=== PATIENT | female | born 1945 | race Caucasian/White ===

== ENCOUNTER → 2021-04-27 | Outpatient (CLI) | payer MEDICARE ==
--- NOTE | 2021-04-27 10:51 | CT ---
EXAMINATION TYPE: CT brain wo con DATE OF EXAM: 04/27/2021 COMPARISON: None HISTORY: Otalgia, Rt Ear CT DLP: 1090.4 mGycm Automated exposure control for dose reduction was used. FINDINGS: Nasal septal deviation. Calvarium intact. Mild generalized degenerative change with no acute hemorrha ge or mass effect. No midline shift. Areas of low attenuation involving the basal ganglia suggestive of remote lacunar infarct. Intracranial atherosclerotic changes. Orbits symmetric. Craniocervical junction maintained. Sella turcica has a normal appearance. IMPRESSION: MILD DEGENERATIVE CHANGE WITH NO ACUTE HEMORRHAGE OR MASS EFFECT.
== END | disposition home or self-care (01) ==
LOC: RADCTMAIN 09:40
PROVIDERS: ATTEND Family Medicine
DX: G31.9 Degenerative disease of nervous system, unspecified (principal)
CPT/HCPCS: 70450

== ENCOUNTER → 2021-05-11 | Outpatient (CLI) | payer MEDICARE ==
[2021-05-11 11:59] LABS: Basophils # (A) 0.1 k/uL (0-0.2); Basophils % (A) 1 %; Eosinophils # (A) 0.1 k/uL (0-0.7); Eosinophils % (A) 1 %; HGB 16.3 gm/dL (11.4-16.0); Lymphocytes # (A) 2.4 k/uL (1.0-4.8); Lymphocytes % (A) 31 %; MCH 31.7 pg (25.0-35.0); MCV 93.1 fL (80.0-100.0); Mean Platelet Volume 7.4; Monocytes # (A) 0.4 k/uL (0-1.0); Monocytes % (A) 5 %; Neutrophils # (A) 4.6 k/uL (1.3-7.7); Neutrophils % (A) 59 %; Platelet Count 300 k/uL (150-450); RBC 5.15 m/uL (3.80-5.40); WBC 7.7 k/uL (3.8-10.6)
[2021-05-11 13:22] LABS: Erythrocyte Sedimentation Rate 7 mm/hr (0-20)
== END | disposition home or self-care (01) ==
LOC: LABWHC1 11:39
PROVIDERS: ATTEND Optometrist
DX: H53.19 Other subjective visual disturbances (principal)
CPT/HCPCS: 36415; 85025; 85652; 86140

== ENCOUNTER → 2023-05-07 | Outpatient (CLI) | payer MEDICARE ==
--- NOTE | 2023-05-12 13:05 | BD ---
EXAMINATION TYPE: Axial Bone Density DATE OF EXAM: 05/07/2023 CLINICAL HISTORY: 78 years old Female. ICD-10 CODE: M40.4 M54.89 BACK PAIN WITHOUT , M54.9 BACK PAIN UNSPECIFIED Height: 57.7 in Weight: 129 lbs RISK FACTORS HISTORY OF: Family History of Osteoporosis: yes grandmother Active: limited Postmenopausal woman: age 53 Lost more than 2 inches in height since high school: yes 06/24" MEDICATIONS: Additional Medications: calcium, vit d, vit c, vit b,blood pressure meds, heart meds, shingles med, EXAM MEASUREMENTS: Bone mineral densitometry was performed using the [employer]. Bone mineral density as measured about the Lumbar spine is: ----- L1-L4(G/cm2): 1.075 T Score Values are as follows: ----- L1: -1.7 ----- L2: -2.0 ----- L3: -0.3 ----- L4: 0.1 ----- L1-L4: -0.9 Z Score Values are as follows: ----- L1: 0.3 ----- L2: 0.0 ----- L3: 1.7 ----- L4: 2.2 ----- L1-L4: 1.2 Bone mineral density has: Increased 1.4% since study of: 08/01/2008 Bone mineral density about the R hip (g/cm2): 0.804 Bone mineral density about the L hip (g/cm2): 0.872 T Score values are as follows: -----R Neck: -2.0 -----L Neck: -1.6 -----R Total: -1.6 -----L Total: -1.1 Z Score values are as follows: -----R Neck: 0.3 -----L Neck: 0.7 -----R Total: 0.5 -----L Total: 1.1 Bone mineral density has: Decreased -10.8% since study of: 08/01/2008 FRAX%s: The graph provided illustrates a 15.9% chance for a major osteoporotic fx and a 4.7% chance f or the hips probability for fx in 10 years time. IMPRESSION: Osteopenia (T Score between -2.5 and -1). There is slightly increased risk of fracture and the patient may be considered for treatment. Re-Screen 2-5 years. NOTE: T-SCORE=SD OF THE YOUNG ADULT MEAN.
== END | disposition home or self-care (01) ==
LOC: RADBDWWP 13:05
PROVIDERS: ATTEND Family Medicine
DX: M85.89 Other specified disorders of bone density and structure, multiple sites (principal); M40.04 Postural kyphosis, thoracic region; M54.89 Other dorsalgia; Z78.0 Asymptomatic menopausal state
CPT/HCPCS: 77080

== ENCOUNTER → 2023-06-19 | Outpatient (CLI) | payer MEDICARE ==
--- NOTE | 2023-06-19 12:47 | CT ---
EXAMINATION TYPE: CT abdomen pelvis wo con CT DLP: 743 mGycm, Automated exposure control for dose reduction was used. DATE OF EXAM: 06/19/2023 11:00 AM COMPARISON: 02/18/2011. CLINICAL INDICATION:Female, 78 years old with history of R31.0 GROSS HEMATURIA; gross hematuria, bila teral flank pain TECHNIQUE: Axial CT abdomen pelvis wo con;Sagittal and coronal reformats were created on a separate workstation. Contrast used: mL of , (none if empty) Oral contrast used: without Oral Contrast (none if empty) FINDINGS: LOWER CHEST: Unremarkable ABDOMEN LIVER: Unremarkable GALLBLADDER AND BILE DUCTS: Large gallstone in the gallbladder neck. PANCREAS: Unremarkable. SPLEEN: Unremarkable. ADRENAL GLANDS: Unremarkable. KIDNEYS AND URETERS: No evidence of hydronephrosis or renal calculus. The ureters are unremarkable. PELVIS BLADDER: Unremarkable REPRODUCTIVE: Unremarkable. ABDOMEN & PELVIS STOMACH AND BOWEL: No evidence of bowel obstruction. The appendix is normal. PERITONEUM/RETROPERITONEUM: No evidence of pneumoperitoneum or free fluid. VASCULATURE: Mild atherosclerotic calcifications are present throughout the abdominal aorta and its b ranches. No evidence of aortic aneurysm. MUSCULOSKELETAL: No acute osseous abnormalities, Grade 1 anterolisthesis of L5 on S1. Multilevel dege neration changes throughout the spine. LYMPH NODES: No gross evidence for lymphadenopathy. SOFT TISSUE/ABDOMINAL WALL: Fat-containing umbilical hernia. IMPRESSION: 1. No evidence for affective uropathy or renal calculus. The lateral wall given limitations of nonco ntrast/excreted IV contrast exam is no evidence for bladder wall thickening or mass. 2. Large gallstone in the gallbladder neck.
== END | disposition home or self-care (01) ==
LOC: RADCTMAIN 10:44
PROVIDERS: ATTEND Family Medicine
DX: K80.20 Calculus of gallbladder without cholecystitis without obstruction (principal); R31.0 Gross hematuria
CPT/HCPCS: 74176